=== PATIENT | female | born 1940 | race Caucasian/White ===

== ENCOUNTER → 2021-08-26 | Outpatient (CLI) | payer MEDICARE, BC ==
--- NOTE | 2021-08-26 16:20 | MR ---
EXAMINATION TYPE: MR lumbar spine wo con DATE OF EXAM: 08/26/2021 COMPARISON: None HISTORY: Sore right thigh, persistant lumbar pain, right leg numbness Multiplanar multiecho imaging of the lumbar spine without contrast. There is biconcave deformity of L 3 vertebral body with decreased signal on the T1 images and consistent with subacute fracture. There is degenerative disc space narrowing throughout the lumbar spine. There is hypertrophic facet arthrop athy with some lateral recess stenosis at L2-3 on the right side. There is L4-5 mild lateral recess s tenosis. There is left-sided L5-S1 lateral recess stenosis. Sacroiliac joints are intact. There is no lumbar paraspinal mass. IMPRESSION: Multilevel spondylotic changes. Compression fracture of L3 vertebra with 30% loss of height and bicon cave deformity. Multilevel mild lateral recess stenosis.
== END | disposition home or self-care (01) ==
LOC: RADMRIMAIN 14:20
PROVIDERS: ATTEND Family Medicine
DX: M54.50 Low back pain, unspecified (principal); R20.0 Anesthesia of skin
CPT/HCPCS: 72148

== ENCOUNTER → 2021-10-04 | Outpatient (CLI) | payer MEDICARE, BC ==
--- NOTE | 2021-10-04 15:56 | BD ---
EXAMINATION TYPE: Axial Bone Density DATE OF EXAM: 10/04/2021 COMPARISON: NONE CLINICAL HISTORY: 80 years year old Female. ICD-10 CODE: M89.9 DISORDER OF BONE Height: 60.5 IN Weight: 121 LBS FRAX RISK QUESTIONS: History of Fracture in Adulthood: COMPRESSION FX L3 RISK FACTORS HISTORY OF: Spine Fracture: COMPRESSION FX L3 Active: YES Postmenopausal woman: AGE 50; PARTIAL HYST AGE 71 Take estrogen and/or progesterone medications: NOT NOW How lon+ YEARS MEDICATIONS: Osteoporosis Medications: NOT NOW Which medication: Fosamax How Lon - 5 YEARS Additional Medications: CALCIUM, VIT D, GABERPRIN, TYLENOL EXAM MEASUREMENTS: Bone mineral densitometry was performed using the [employer] System. COMPRESSION L3 Bone mineral density about the R hip (g/cm2): 0.677 Bone mineral density about the L hip (g/cm2): 0.647 T Score values are as follows: -----R Neck: -2.6 -----L Neck: -2.8 -----R Total: -2.1 -----L Total: -2.3 Bone mineral density BASELINE Bone mineral density about the L Wrist (g/cm2): 0.480 T Score values are as follows: -----Dist. R+U: -4.0 -----Prox. R+U: -2.8 -----Radius total: -3.2 Bone mineral density BASELINE FRAX%s: The graph provided illustrates a 29.7 chance for a major osteoporotic fx and a 11.3 chance fo r the hips probability for fx in 10 years time. IMPRESSION: Osteoporosis (T Score less than -2.5). There is increased fracture risk and therapy is usually indicated based on age. Re-Screen 1-2 years. NOTE: T-SCORE=SD OF THE YOUNG ADULT MEAN.
== END | disposition home or self-care (01) ==
LOC: RADBDWWP 14:51
PROVIDERS: ATTEND Family Medicine
DX: Z13.820 Encounter for screening for osteoporosis (principal); M89.9 Disorder of bone, unspecified
CPT/HCPCS: 77080

== ENCOUNTER → 2021-11-24 | Outpatient (CLI) | payer MEDICARE, BC ==
[~2021-11-24] MED LIST: DENOSUMAB 60 MG/ML 1 ML SYRINGE SQ NR
[2021-11-24 10:36] VITALS: BP 158/83; PULSE 76; RESP 15; TEMP 98
== END | disposition home or self-care (01) ==
LOC: PROCWHC3 10:22
PROVIDERS: ATTEND Internal Medicine Endocrinology, Diabetes & Metabolism
DX: M81.0 Age-related osteoporosis without current pathological fracture (principal)
CPT/HCPCS: 96372; J0897

== ENCOUNTER → 2022-05-30 | Outpatient (CLI) | payer MEDICARE, BC ==
[2022-05-30 10:32] VITALS: BP 156/81; PULSE 73; RESP 16; TEMP 97.5
== END ==
LOC: PROCWHC3 10:07
PROVIDERS: ATTEND Internal Medicine Endocrinology, Diabetes & Metabolism
DX: M81.0 Age-related osteoporosis without current pathological fracture (principal)
CPT/HCPCS: 96372; J0897